=== PATIENT | male | born 1985 | race Caucasian/White ===

== ENCOUNTER 2020-06-11 14:22 | Emergency (ER) | payer BC, SELFPAY ==
--- NOTE | ~2020-06-11 | XR_ITS ---
EXAMINATION: XR chest 2V DATE: 06/11/2020 14:38 INDICATION: Chest pain and palpitations TECHNIQUE: PA and lateral views of the chest are obtained. COMPARISON: None available FINDINGS: The lungs are free of acute opacities. There is no pleural effusion or pneumothorax. The ca rdiomediastinal silhouette is normal. The visualized bones and soft tissues are unremarkable. IMPRESSION: 1. No acute cardiopulmonary abnormality. Reviewed, dictated and finalized at location B.
[2020-06-11 14:25] VITALS: BP 148/88; PULSE 88; RESP 16; TEMP 37; O2SAT 100
--- NOTE | 2020-06-11 14:25 | ECG_ITS ---
Measurements Intervals [place] Rate: 81 P: 39 RI: 128 QRS: 63 QRSD: 89 T: 28 QT: 365 QTc: 425 Interpretive Statements SINUS RHYTHM NORMAL ECG Electronically Signed On 06-11-2020 14:45:09 CDT by Ian Andre D.O.
[2020-06-11 14:48] LABS: Basophils Percent Auto 0.2 % (0.2-1.2); Eosinophils Absolute Auto 0.1 K/mm3 (0-0.3); Eosinophils Percent Auto 0.6 % (0-4.4); Hemoglobin 15.5 g/dL (14.0-18.0); INR 1.1; Immature Granulocyte Absolute 0.04 K/mm3 (0.00-0.031); Immature Granulocyte Percent A 0.3 % (0-0.5); Lymphocytes Absolute Auto 2.55 K/mm3 (0.9-3.2); Mean Corpuscular HGB Conc 35.2 g/dl (32-36); Mean Corpuscular Hemoglobin 30.9 pg (26-34); Mean Corpuscular Volume 87.8 fl (80-100); Mean Platelet Volume 9.1 fl (7.4-10.4); Monocytes Absolute Auto 0.8 K/mm3 (0.1-0.6); Monocytes Percent Auto 6.3 % (2.6-8.5); Neutrophils Absolute Auto 8.7 K/mm3 (1.3-6.7); Neutrophils Percent Auto 71.6 % (45.5-73.1); Platelet Count Result 419 k/mm3 (150-375); Prothrombin Time 13.7 Seconds (11.1-14.7); Red Blood Count 5.01 M/mm3 (4.6-6.20); Red Cell Distribution Width 12.4 % (11.5-14.5); White Blood Count 12.1 K/mm3 (4.5-10.0)
[2020-06-11 14:49] LABS: Partial Thromboplastin Time 26.8 SECONDS (22.3-36.8)
[2020-06-11 14:51] LABS: Anion Gap 13 mmol/L (8-16); Blood Urea Nitrogen 9 mg/dL (9-20); Calcium 9.8 mg/dL (8.4-10.2); Carbon Dioxide 19 mmol/L (22-30); Chloride 103 mmol/L (98-107); Estimated CRCL calculation 117 ml/min; Estimated Glomerular Filt Rate > 60; Glucose 97 mg/dL (75-110); Sodium 135 mmol/L (137-145)
[2020-06-11 15:03] LABS: Troponin I < 0.012 ng/mL (0.000-0.034)
[2020-06-11] MEDS: ASPIRIN 81 MG CHEWABLE TABLET 324 MG PO (15:13)
--- NOTE | 2020-06-11 15:17 | ED.CHESTPAIN ---
HPI - Chest Pain General Chief Complaint: Chest Pain Stated Complaint: chest pain Time Seen by Provider: 06/11/20 14:50 Source: patient Mode of arrival: ambulatory Limitations: no limitations History of Present Illness HPI narrative: 54 years old white male had almost constant chest pain across the chest for the last 2 days, was all night long. Patient denies any aggravating or relieving factors. The pain is sharp, sometimes shooting to the right upper extremity. Patient denies any aggravating factors. Patient denies any fever, chills, nausea, vomiting, shortness of breath. Patient reports tremendous amount of stress lately. Currently patient on CPAP for sleep apnea. Patient went to urgent care who referred him to the emergency room because THEY heard a murmur. Related Data Home Medications Medication Instructions Recorded Confirmed No Home Medications 06/11/20 06/11/20 Allergies Allergy/AdvReac Type Severity Reaction Status Date / Time No Known Allergies Allergy Mild Verified 07/25/08 04:06 Review of Systems Review of Systems: Narrative: CONSTITUTIONAL: Denies fever, chills, or sweats. EYES: Denies visual changes, redness, or discharge. ENT: Denies rhinorrhea, congestion, sore throat, or otalgia. CARDIOVASCULAR: Denies chest pain, palpitations, or edema. RESPIRATORY: Denies cough or dyspnea. GASTROINTESTINAL: Denies abdominal pain, nausea, vomiting, or diarrhea. GENITOURINARY: Denies dysuria or hematuria. SKIN: Denies rash or itching. MUSCULOSKELETAL: Denies back pain, joint pain, or myalgia. NEUROLOGIC: Denies headache, numbness, or weakness. PSYCHIATRIC: Denies anxiety or depression. [facility] Past Medical History Medical History (Updated 06/11/20 @ 16:12 by Shekhar Mckeon MD) Sleep apnea Family History Family History (Updated 05/28/14 @ 07:13 by DOCTOR UNKNOWN) Father Family history of type 2 diabetes mellitus Social History Social History Alcohol intake: current Gender identity (if verbalized by the patient): Male Exam Narrative: Exam Narrative: General appearance: Well-developed, well-nourished Skin: Normal color Head: Normocephalic, nontraumatic Eyes: Clear conjunctiva ENT: Oropharynx normal, ears normal, nose normal Neck: Supple, nontender Chest and respiratory: Airway patent, no respiratory distress, no accessory muscle use Heart: Regular rate/rhythm, no cardiac murmur Abdomen: Soft, nontender, no organomegaly, quiet bowel sounds Vascular: Normal peripheral pulses, normal capillary refill. Musculoskeletal: Normal range of motion, nontender back Neurologic: Alert and oriented ?3, [employer] is normal as tested, no gross motor deficit Course Course Emergency Course: Stable Vital Signs Vital signs: Vital Signs Temperature 37.0 C 06/11/20 14:25 Pulse Rate 88 06/11/20 14:25 Respiratory Rate 16 06/11/20 14:25 Blood Pressure 148/88 H 06/11/20 14:25 Pulse Oximetry 100 06/11/20 14:25 Temperature 37.0 C 06/11/20 14:25 Pulse Rate 88 06/11/20 14:25 Respiratory Rate 16 06/11/20 14:25 Blood Pressure 148/88 H 06/11/20 14:25 Pulse Oximetry 100 06/11/20 14:25 MDM - Chest Pain MDM Narrative Medical decision making narrative: Patient referred to the emergency room because of chest pain for the last 2 days, and also a murmur. Physical exam showed no murmur, blood work-up and chest x-ray and EKG showed no acute abnormality. Patient under tremendous amount of stress lately which is my concern. Which high likely the underlying cause of his chest pain. Patient is not a smoker, no family history of coronary artery disease, does not take any medicine at home. Patient also denies any dr
[2020-06-11 15:21] LABS: D Dimer 0.28 ug/mL (<0.48)
[2020-06-11 16:26] VITALS: BP 142/83; PULSE 81; RESP 18; O2SAT 97
== END 2020-06-11 16:28 | disposition home or self-care (01) ==
PROVIDERS: Emergency Medicine; Emergency Provider Emergency Medicine
DX: R00.2 Palpitations (principal); F41.9 Anxiety disorder, unspecified; R07.9 Chest pain, unspecified; G47.30 Sleep apnea, unspecified
CPT/HCPCS: 36415; 71046; 80048; 84484; 85025; 85380; 85610; 85730; 93005; 99284; A9270